=== PATIENT | male | born 1950 | race Caucasian/White ===

== ENCOUNTER 2020-06-21 18:59 | Emergency (ER) | payer OTHER ==
[2020-06-21] MEDS ORDERED: CLINDAMYCIN HCL 150 MG CAP ONE (20:28)
[2020-06-21] MEDS ORDERED: ACETAMINOPHEN EXTRA STRENGTH 500 MG TABLET ONE (20:38)
== END 2020-06-21 20:43 | disposition home or self-care (01) ==
LOC: EDH 18:59
DX: S81.831A Puncture wound without foreign body, right lower leg, initial encounter (principal); I10 Essential (primary) hypertension; E78.00 Pure hypercholesterolemia, unspecified; Z72.0 Tobacco use; Z88.0 Allergy status to penicillin; W54.0XXA Bitten by dog, initial encounter; Y93.89 Activity, other specified; Y92.098 Other place in other non-institutional residence as the place of occurrence of the external cause; Y99.8 Other external cause status

== ENCOUNTER 2020-06-22 06:13 | Emergency (ER) | payer OTHER ==
[2020-06-22] MEDS ORDERED: HYDROCODONE/ACETAMINOPHEN 10/325 MG TAB ONE (06:54)
[2020-06-22] MEDS ORDERED: IBUPROFEN 600 MG TABLET ONE (06:56)
== END 2020-06-22 06:51 | disposition home or self-care (01) ==
LOC: EDH 06:13
DX: S43.51XA Sprain of right acromioclavicular joint, initial encounter (principal); I10 Essential (primary) hypertension; E78.00 Pure hypercholesterolemia, unspecified; Z88.0 Allergy status to penicillin; Z98.890 Other specified postprocedural states; W18.39XA Other fall on same level, initial encounter; Y93.89 Activity, other specified; Y92.89 Other specified places as the place of occurrence of the external cause; Y99.8 Other external cause status
CPT/HCPCS: 73030